=== PATIENT | female | born 1970 | race Caucasian/White ===

== ENCOUNTER → 2019-10-16 | Outpatient (CLI) | payer BC ==
--- NOTE | 2019-10-16 08:25 | US ---
EXAMINATION TYPE: US gallbladder DATE OF EXAM: 10/16/2019 COMPARISON: NONE CLINICAL HISTORY: R07.89 Chest pain, R10 Abd pain. Patient states she doesn't feel good after eating. Heart palpitations. EXAM MEASUREMENTS: Liver Length: 12.9 cm Gallbladder Wall: 0.2 cm CBD: 0.3 cm Right Kidney: 9.3 x 3.9 x 3.8 cm Pancreas: wnl Liver: wnl Gallbladder: wnl Evidence for sonographic Butts's sign: neg CBD: wnl Right Kidney: wnl IMPRESSION: Unremarkable ultrasound of the gallbladder. No sonographic evidence of cholelithiasis nor acute cholecystitis.
== END | disposition home or self-care (01) ==
LOC: RADUSWWP 07:34
PROVIDERS: ATTEND Family Medicine
DX: R10.9 Unspecified abdominal pain (principal); R07.89 Other chest pain; R00.2 Palpitations
CPT/HCPCS: 76705

== ENCOUNTER → 2020-04-23 | Outpatient (CLI) | payer BC ==
[2020-04-23 12:55] VITALS: BP 132/92; PULSE 111; RESP 18; TEMP 98.2
--- NOTE | 2020-04-23 13:25 | P.HPOB ---
History of Present Illness H&P Date: 04/23/20 Chief Complaint: The patient is here for her routine gynecologic exam and ma mmogram. This is a 50-year-old with an LMP of 2006. The patient has been amenorrheic since her endometrial ablation in 2006. She has occasional hot flashes at night but these are intermittent. She is otherwise without complaints. Review of Systems The patient has lost 7 pounds over the last 4 years. She denies respiratory, cardiac, or G.I. problems. Past Medical History Past Medical History: Hyperlipidemia Additional Past Medical History / Comment(s): Seasonal ALLERGIES. 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 History of Any Multi-Drug Resistant Organisms: None Reported Past Surgical History: Section, Hernia Repair, Uterine Ablation Additional Past Surgical History / Comment(s): Endometrial ablation in 2016. One previous section. Right flank hernia repair 1998. 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 - Past Family History Mother Family Medical History: Cancer, CVA/TIA, Myocardial Infarction ([place]) Additional Family Medical History / Comment(s): Leukemia. Father Family Medical History: Cancer, Congestive Heart Failure (CHF), Diabetes Mellitus, Renal Disease Additional Family Medical History / Comment(s): Prostate cancer, bladder cancer, and lung cancer. Medications and Allergies Home Medications Medication Instructions Recorded Confirmed Type Atorvastatin Calcium [Lipitor] 40 mg PO DAILY 04/23/20 04/23/20 History Diltiazem HCl [Cartia Xt] 240 mg PO DAILY 04/23/20 04/23/20 History Fexofenadine HCl [Sharmin Allergy] 180 mg PO DAILY 04/23/20 04/23/20 History Omeprazole [PriLOSEC] 20 mg PO AC-BRKFST 04/23/20 04/23/20 History Allergies Allergy/AdvReac Type Severity Reaction Status Date / Time Sulfa (Sulfonamide Allergy Unknown Unverified 04/23/20 12:50 Antibiotics) Exam Vital Signs Temp Pulse Resp BP Pulse Ox 04/23/20 12:52 98.2 F 111 H 18 132/92 98 Intake and Output 04/22/20 04/23/20 04/23/20 22:59 06:59 14:59 Other: Weight 53.524 kg Height 5 feet 5 inches, weight 118 pounds, BMI 19.6. This is a well-developed well-nourished white female who is alert and oriented times 3 in no acute distress. HEENT: Within normal limits. NECK: Supple without mass or thyromegaly. CHEST AND LUNGS: Clear to auscultation. HEART: Mild tachycardia. Regular rhythm. BREASTS: Are without mass or discharge. AXILLARY EXAM: Negative for adenopathy. BACK: Negative for CVA tenderness. ABDOMEN: Soft, nontender, without palpable masses. PELVIC EXAM: Normal external genitalia. Cervix and vagina appear normal. There is no unusual discharge. There is no evidence of prolapse. The uterus is midposition, nongravid size and nontender. There are no palpable adnexal masses or tenderness. RECTAL EXAM: negative for mass or tenderness and is negative for occult blood. EXTREMITIES: Nontender. IMPRESSION: 1. 50-year-old perimenopausal female with amenorrhea following endometrial ablation in 2006. 2. Normal gynecologic exam. 3. Mildly elevated blood pressure. PLAN: 1. Pap smear was performed. 2. Self breast awareness was discussed with the patient. 3. Screening mammogram will be done today. 4. We have discussed her elevated blood pressure. I have recommended that she check her blood pressure on a daily basis at home since she does have a blood pressure cuff. She is to follow up with her PCP for blood pressure elevations. She states she also has a natural resources engineer, Dr. Reardon. 5. Osteoporosis prevention was discussed. I have stressed the importance of adequate calcium, vitamin D and regular exercise. Recommended amounts of calcium and vitamin D were also discussed. 6. She was advised to return in one year for her annual well woman exam.
--- NOTE | 2020-04-25 10:40 | MM ---
Reason for exam: screening (asymptomatic). Last mammogram was performed 4 years ago. History: Family history of breast cancer in maternal aunt at age 40, breast cancer in paternal cousin at age 38, and breast cancer in maternal grandmother at age 50. Physical Findings: A clinical breast exam by your physician is recommended on an annual basis and results should be correlated with mammographic findings. MG 3D Screening Mammo W/Cad Bilateral CC and MLO view(s) were taken. Prior study comparison: April 21, 2016, bilateral MG screening mammo w CAD. March 13, 2014, bilateral MG screening mammo w CAD. The breast tissue is heterogeneously dense. This may lower the sensitivity of mammography. Asymmetric density inferior right MLO view is unchanged back to 2016. No significant changes when compared with prior studies. ASSESSMENT: Benign, BI-RAD 2 RECOMMENDATION: Routine screening mammogram of both breasts in 1 year.
--- NOTE | 2020-05-07 16:59 | P.PN ---
Progress Note - Text Progress Note Date: 05/07/20 OUTPATIENT FOLLOW-UP NOTE TEST(S)/RESULTS: test results from 04/23/2020 include negative Pap smear and benign mammogram. METHOD OF NOTIFICATION: the patient was notified by phone. PATIENT COMMENTS: the patient is happy to hear these results. DIAGNOSIS: negative Pap smear and benign mammogram. DISCUSSION: PLAN: the patient is to return in one year for her annual well woman exam.
== END | disposition home or self-care (01) ==
LOC: WWCWWP 12:29
PROVIDERS: ATTEND Obstetrics & Gynecology
DX: Z12.31 Encounter for screening mammogram for malignant neoplasm of breast (principal)
CPT/HCPCS: 77063; 77067

== ENCOUNTER 2020-05-22 10:04 | Day surgery (SDC) | payer BC ==
[2020-05-20 13:41] VITALS: BMI 19.6
[~2020-05-22 10:04] MED LIST: LACTATED RINGERS 1,000 ML IV SCH; LIDOCAINE 1% (10MG/ML) FOR IV START INTRADERMA PRN
[2020-05-22 10:32] VITALS: RESP 16; TEMP 98.2
[2020-05-22] MEDS ORDERED: PROPOFOL 10 MG/ML 20 ML VIAL IV ONE (11:29)
--- NOTE | 2020-05-22 11:40 | P.PCN ---
Date of Procedure: 05/22/20 Procedure(s) Performed: BRIEF HISTORY: Patient is a 50-year-old pleasant white female scheduled for an elective colonoscopy as a part of screening for colorectal neoplasia. PROCEDURE PERFORMED: Colonoscopy. PREOPERATIVE DIAGNOSIS: Screening for colon cancer. IV sedation per Anesthesia. PROCEDURE: After informed consent was obtained, the patient, was brought into the endoscopy unit. IV sedation was administered by Anesthesia under continuous monitoring. Digital rectal examination was normal. Initially the Olympus CF-160 flexible video colonoscope was then inserted in the rectum, gradually advanced into the cecum without any difficulty. Careful examination was performed as the scope was gradually being withdrawn. Ileocecal valve and the appendiceal orifice were visualized and appeared normal. Prep was excellent. Mucosa of the cecum, ascending colon, transverse colon, descending colon, sigmoid colon, and rectum appeared normal. Retroflexion was performed in the rectum and no lesions were seen. The patient tolerated the procedure well. IMPRESSION: Normal-appearing colon from rectum to cecum with no evidence of colorectal neoplasia. RECOMMENDATIONS: Findings of this examination were discussed with the patient as well as a family. She was advised to have a repeat screening colonoscopy in 10 years..
[2020-05-22 12:06] VITALS: BP 121/79; PULSE 86
== END 2020-05-22 12:40 | disposition home or self-care (01) ==
LOC: ORWHC2ENDO 10:04
PROVIDERS: ATTEND Internal Medicine Gastroenterology
DX: Z12.11 Encounter for screening for malignant neoplasm of colon (principal); E78.5 Hyperlipidemia, unspecified; K21.9 Gastro-esophageal reflux disease without esophagitis; Z79.899 Other long term (current) drug therapy; Z88.2 Allergy status to sulfonamides; Z90.89 Acquired absence of other organs; Z98.890 Other specified postprocedural states; Z98.891 History of uterine scar from previous surgery
CPT/HCPCS: 81025; J2704; G0121

== ENCOUNTER → 2020-08-06 | Outpatient (CLI) | payer BC ==
--- NOTE | 2020-08-06 11:50 | CT ---
EXAMINATION TYPE: CT soft tissue neck w con DATE OF EXAM: 08/06/2020 COMPARISON: Cervical spine 04/09/2011 HISTORY: Neck pain CT DLP: 244.20 mGycm CONTRAST: Patient injected with 100 ml mL of Isovue 300. TECHNIQUE: Axial images at 3 mm thick sections. Reconstructed images in the coronal plane and sagitt al plane are reviewed. FINDINGS: Limited CT sections are obtained the lung apices. There is thickening through the bilatera l lung apices. This was present in [address] neck: There is slight effacement of the left fossa of Rosenmuller compared to the right. Direct vi sualization is recommended. Underlying mass however is not clearly evident. Senior Storage Engineer spaces are nor mal. Paranasal sinuses and mastoid air cells are clear. Parotid glands appear normal and symmetrical. Submandibular glands, are normal. Parapharyngeal spac es are normal. No suspicious adenopathy is evident. The hypopharynx appears within normal limits. Vocal cord level appear symmetrical. Thyroid as visualized is normal. Osseous structures are normal. IMPRESSIONS: 1. Some effacement of the left fossa of Rosenmuller compared to the right. Direct visualization is re commended. 2. Suspicious abnormality to account for neck pain is not identified.
== END | disposition home or self-care (01) ==
LOC: RADCTMAIN 08:40
PROVIDERS: ATTEND Otolaryngology
DX: M54.2 Cervicalgia (principal); Z88.2 Allergy status to sulfonamides
CPT/HCPCS: 70491; Q9967

== ENCOUNTER 2021-07-03 10:02 | Day surgery (SDC) | payer BC ==
[2021-07-02 11:02] VITALS: BMI 20.7
[2021-07-03 10:31] VITALS: TEMP 97.8
[2021-07-03] MEDS ORDERED: LACTATED RINGERS 1,000 ML IV ONE (10:36)
[2021-07-03] MEDS ORDERED: LIDOCAINE 1% INJ 10MG/ML (20 ML MDV) ONE (11:26)
[2021-07-03] MEDS ORDERED: PROPOFOL 10 MG/ML 20 ML VIAL IV ONE (11:26)
--- NOTE | 2021-07-03 11:41 | P.PCN ---
Date of Procedure: 07/03/21 Procedure(s) Performed: BRIEF HISTORY: Patient is a 51-year-old, pleasant, white female scheduled for an upper endoscopy as a part of evaluation of epigastric pain, nausea, heartburn for the last 1 year duration. Presently on Prilosec 20 mg daily and the heartburn is resolved. Continues to have persistent epigastric pain. PROCEDURE PERFORMED: Esophagogastroduodenoscopy with biopsy. PREOPERATIVE DIAGNOSIS: Epigastric pain/nausea/. IV sedation per anesthesia. PROCEDURE: After informed consent was obtained, the patient was brought into the endoscopy unit. IV sedation was administered by Anesthesia under continuous monitoring. Initially the Olympus GIF-140 video endoscope was inserted into the mouth. Esophagus intubated without any difficulty. It was gradually advanced into the stomach and duodenum and carefully examined. The bulb and the second part of the duodenum appeared normal. Biopsies were done from the duodenum to rule out celiac disease The scope at this time was withdrawn to the stomach, adequately insufflated with air, and upon careful examination, mucosa of the antrum, mild gastritis and biopsies were done from this area. The body, cardia and the fundus appeared normal. The scope was then withdrawn into the esophagus. The GE junction was located at 39 cm from the incisors. The esophagus appeared normal. There were no erosions or ulcerations seen , biopsies were done from the esophagus and the patient tolerated the procedure well. IMPRESSION: 1. Mild antral gastritis. 2. Normal-appearing esophagus with no evidence of esophagitis or Crump's esophagus. RECOMMENDATIONS: The findings of this examination were discussed with the patient as well as a family. She was advised to follow with the biopsy result. She will continue with Prilosec 20 mg daily and follow antireflux measures..
[2021-07-03 11:57] VITALS: BP 124/80; PULSE 77; RESP 16
== END 2021-07-03 12:25 | disposition home or self-care (01) ==
LOC: ORWHC2ENDO 10:02
PROVIDERS: ATTEND Internal Medicine Gastroenterology
DX: K21.00 Gastro-esophageal reflux disease with esophagitis, without bleeding (principal); K29.70 Gastritis, unspecified, without bleeding; E78.5 Hyperlipidemia, unspecified; I49.9 Cardiac arrhythmia, unspecified; Z79.899 Other long term (current) drug therapy
CPT/HCPCS: 43239; 88305; J2001; J2704

== ENCOUNTER → 2021-08-05 | Outpatient (CLI) | payer BC ==
[2021-08-05 11:45] VITALS: BP 156/93; PULSE 95; RESP 16; TEMP 98.5
--- NOTE | 2021-08-05 12:32 | P.HPOB ---
History of Present Illness H&P Date: 08/05/21 Chief Complaint: The patient is here for her routine gynecologic exam and ma mmogram. This is a 51-year-old with an LMP of 2006. She is status post endometrial ablation in 2006 and has been amenorrheic since then. The patient is without gynecologic complaints. She denies any vaginal bleeding. Review of Systems She has gained 3 pounds over the past year. She denies respiratory or cardiac problems. GI: She has been feeling slightly queasy after eating and has been seeing Dr. Lynch for this. Past Medical History Past Medical History: GERD/Reflux, Hyperlipidemia Additional Past Medical History / Comment(s): Seasonal ALLERGIES. 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 History of Any Multi-Drug Resistant Organisms: None Reported Past Surgical History: Section, Hernia Repair, Tonsillectomy, Uterine Ablation Additional Past Surgical History / Comment(s): Endometrial ablation in 2016. One previous section. Right flank hernia repair 1998. COLONOSCOPY 2019. Upper endoscopy 2020. 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 - Past Family History Mother Family Medical History: Cancer, CVA/TIA, Myocardial Infarction ([place]), Pulmonary Embolus Additional Family Medical History / Comment(s): Leukemia, blood clot to lung. Father Family Medical History: Cancer, Congestive Heart Failure (CHF), Diabetes Mellitus, Renal Disease Additional Family Medical History / Comment(s): Prostate cancer, bladder cancer, and lung cancer. . Brother(s) Family Medical History: Myocardial Infarction ([place]) Medications and Allergies Home Medications Medication Instructions Recorded Confirmed Type Atorvastatin Calcium [Lipitor] 40 mg PO DAILY 04/23/20 08/05/21 History Diltiazem HCl [Cartia Xt] 240 mg PO DAILY 04/23/20 08/05/21 History Fexofenadine HCl [Sharmin Allergy] 180 mg PO DAILY 04/23/20 08/05/21 History Omeprazole [PriLOSEC] 20 mg PO AC-BRKFST 04/23/20 08/05/21 History Biotin 10,000 mcg PO DAILY 05/20/20 08/05/21 History Cholecalciferol [Vitamin D3 (25 2,000 unit PO DAILY 05/20/20 08/05/21 History Mcg = 1000 Iu)] Fiorellaacidoph,Novai, B.lactis 1 tab PO DAILY 05/20/20 08/05/21 History [Probiotic] Olopatadine HCl [Pataday] 1 drop BOTH EYES DAILY 05/20/20 08/05/21 History Cranberry Fruit Extract [Cranberry] 200 mg PO DAILY 08/05/21 08/05/21 History Allergies Allergy/AdvReac Type Severity Reaction Status Date / Time Sulfa (Sulfonamide Allergy Unknown Unverified 08/05/21 11:42 Antibiotics) Exam Vital Signs Temp Pulse Resp BP Pulse Ox 08/05/21 11:42 98.5 F 95 16 156/93 100 Intake and Output 08/04/21 08/05/21 08/05/21 22:59 06:59 14:59 Other: Weight 54.885 kg Height 5 feet 5 inches, weight 121 pounds, BMI 20.1. This is a well-developed well-nourished white female who is alert and oriented times 3 in no acute distress. HEENT: Within normal limits. NECK: Supple without mass or thyromegaly. CHEST AND LUNGS: Clear to auscultation. HEART: Regular rate and rhythm. BREASTS: Are without mass or discharge. AXILLARY EXAM: Negative for adenopathy. BACK: Negative for CVA tenderness. ABDOMEN: Soft, nontender, without palpable masses. PELVIC EXAM: Normal external genitalia with minimal atrophy. Cervix and vagina appear normal minimal atrophy. There is no unusual discharge. There is no evidence of prolapse. The uterus is midposition, nongravid size and nontender. There are no palpable adnexal masses or tenderness. RECTAL EXAM: Rectovaginal exam is negative for mass or tenderness and is negative for occult blood. EXTREMITIES: Nontender. IMPRESSION: 1. 51-year-old perimenopausal female with normal gynecologic exam. 2. Amenorrhea following endometrial ablation in 2006. 3. Elevated blood pressure. PLAN: 1. Pap smear was deferred since she had a normal one on 04/23/2020. 2. Self breast awareness was discussed with the patient. We have also discussed symptoms associated with inflammatory breast cancer. 3. Screening mammogram was done today. 4. We have discussed her blood pressure elevation. She will check her own blood pressure at home on a regular basis and follow up with her primary care physician regarding blood pressure elevation. 5. Osteoporosis prevention was discussed. I have stressed the importance of adequate calcium, vitamin D and regular exercise. Recommended amounts of calcium and vitamin D were also discussed. 6. She was advised to return in one year for her annual well woman exam.
--- NOTE | 2021-08-07 11:38 | MM ---
Reason for exam: screening (asymptomatic). Last mammogram was performed 1 year and 3 months ago. History: Patient is postmenopausal. Family history of breast cancer in maternal aunt at age 40, breast cancer in paternal cousin at age 38, and breast cancer in maternal grandmother at age 50. Physical Findings: A clinical breast exam by your physician is recommended on an annual basis and results should be correlated with mammographic findings. MG 3D Screening Mammo W/Cad Bilateral CC and MLO view(s) were taken. Prior study comparison: April 23, 2020, bilateral MG 3d screening mammo w/cad. April 21, 2016, bilateral MG screening mammo w CAD. There are scattered fibroglandular densities. No significant changes when compared with prior studies. ASSESSMENT: Benign, BI-RAD 2 RECOMMENDATION: Routine screening mammogram of both breasts in 1 year.
== END ==
LOC: WWCWWP 10:53
PROVIDERS: ATTEND Obstetrics & Gynecology
DX: Z01.419 Encounter for gynecological examination (general) (routine) without abnormal findings (principal); Z12.31 Encounter for screening mammogram for malignant neoplasm of breast; N91.2 Amenorrhea, unspecified; R03.0 Elevated blood-pressure reading, without diagnosis of hypertension; K21.9 Gastro-esophageal reflux disease without esophagitis; E78.5 Hyperlipidemia, unspecified; Z88.2 Allergy status to sulfonamides; Z79.899 Other long term (current) drug therapy
CPT/HCPCS: 77063; 77067

== ENCOUNTER 2021-10-23 15:56 | Observation (INO) | payer BC ==
[2021-10-23] MEDS ORDERED: SODIUM CHLORIDE 0.9% 500 ML 500 ML IV STA (16:29)
[2021-10-23] MEDS ORDERED: KETOROLAC 30 MG/ML 1 ML VIAL IVP STA (16:29)
[2021-10-23] MEDS ORDERED: LORazepam 2 MG/ML INJ IV STA (16:29)
--- NOTE | 2021-10-23 16:33 | ED ---
General Adult HPI - General Chief complaint: Chest Pain Stated complaint: Chest pains Time Seen by Provider: 10/23/21 16:00 Source: patient, family, RN notes reviewed, old records reviewed Mode of arrival: ambulatory - History of Present Illness Initial comments: This is a 51-year-old female presents emergency Department complaining of left- sided chest pain which radiates down her left arm. Patient states his been occurring for over a week. Patient states the pain is intermittent in nature and the duration is different every time. Patient states over the last 2 days been extremely significantly worse. Patient states she's also short of breath. Patient states she saw her primary medical care doctor and she was treated for urinary tract infection and given Lexapro for anxiety. Patient states she has no fever chills or cough per patient denies abdominal pain patient denies nausea vomiting diarrhea. Patient denies any headache patient denies numbness weakness. Patient states she just feels terrible overall. - Related Data Home Medications Medication Instructions Recorded Confirmed Atorvastatin Calcium [Lipitor] 40 mg PO DAILY 04/23/20 08/05/21 Diltiazem HCl [Cartia Xt] 240 mg PO DAILY 04/23/20 08/05/21 Fexofenadine HCl [Sharmin Allergy] 180 mg PO DAILY 04/23/20 08/05/21 Omeprazole [PriLOSEC] 20 mg PO AC-BRKFST 04/23/20 08/05/21 Biotin 10,000 mcg PO DAILY 05/20/20 08/05/21 Cholecalciferol [Vitamin D3 (25 2,000 unit PO DAILY 05/20/20 08/05/21 Mcg = 1000 Iu)] L.acidoph,Paracasei, B.lactis 1 tab PO DAILY 05/20/20 08/05/21 [Probiotic] Olopatadine HCl [Pataday] 1 drop BOTH EYES DAILY 05/20/20 08/05/21 Cranberry Fruit Extract [Cranberry] 200 mg PO DAILY 08/05/21 08/05/21 Allergies Allergy/AdvReac Type Severity Reaction Status Date / Time Sulfa (Sulfonamide Allergy Unknown Verified 10/23/21 16:05 Antibiotics) Review of Systems ROS Statement: Those systems with pertinent positive or pertinent negative responses have been documented in the HPI. ROS Other: All systems not noted in ROS Statement are negative. Past Medical History Past Medical History: GERD/Reflux, Hyperlipidemia Additional Past Medical History / Comment(s): Seasonal ALLERGIES. 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 History of Any Multi-Drug Resistant Organisms: None Reported Past Surgical History: Section, Hernia Repair, Tonsillectomy, Uterine Ablation Additional Past Surgical History / Comment(s): Endometrial ablation in 2017. One previous section. Right flank hernia repair 1998. COLONOSCOPY 2019. Upper endoscopy 2020. Past Anesthesia/Blood Transfusion Reactions: No Reported Reaction, Motion Sickness Past Psychological History: Anxiety Smoking Status: Never smoker Past Alcohol Use History: Occasional Past Drug Use History: None Reported - Past Family History Mother Family Medical History: Cancer, CVA/TIA, Myocardial Infarction ([place]), Pulmonary Embolus Additional Family Medical History / Comment(s): Leukemia, blood clot to lung. Father Family Medical History: Cancer, Congestive Heart Failure (CHF), Diabetes Mellitus, Renal Disease Additional Family Medical History / Comment(s): Prostate cancer, bladder cancer, and lung cancer. . Brother(s) Family Medical History: Myocardial Infarction ([place]) General Exam - General Exam Comments Initial Comments: GENERAL: Patient is well-developed and well-nourished. Patient is nontoxic and well- hydrated and is in mild distress. ENT: Neck is soft and supple. No significant lymphadenopathy is noted. Oropharynx is clear. Moist mucous membranes. Neck has full range of motion without eliciting any pain. EYES: The sclera were anicteric and conjunctiva were pink and moist. Extraocular movements were intact and pupils were equal round and reactive to light. Eyelids were unremarkable. PULMONARY: Unlabored respirations. Good breath sounds bilaterally. No audible rales rhonchi or wheezing was noted. CARDIOVASCULAR: There is a regular rate and rhythm without any murmurs gallops or rubs. Femoral pulses are equal bilaterally ABDOMEN: Soft and nontender with normal bowel sounds. SKIN: Skin is clear with no lesions or rashes and otherwise unremarkable. NEUROLOGIC: Patient is alert and oriented x3. Cranial nerves II through XII are grossly intact. Motor and sensory are also intact. Normal speech, volume and content. Symmetrical smile. MUSCULOSKELETAL: Normal extremities with adequate strength and full range of motion. 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 Patient's EKG shows no ST segment elevation or depression Chest x-ray shows no acute abnormality. Patient states she had some relief with the Ativan and Toradol. I spoke with Dr. Blanco he agreed to admit the patient admitted the patient I consult cardiology. - Lab Data Result diagrams: 10/23/21 16:40 10/23/21 16:40 Lab Results 10/23/21 10/23/21 10/23/21 Range/Units 16:40 16:40 16:40 WBC 8.1 (3.8-10.6) k/uL RBC 4.29 (3.80-5.40) m/uL Hgb 13.6 (11.4-16.0) gm/dL Hct 40.9 (34.0-46.0) % MCV 95.3 (80.0-100.0) fL MCH 31.6 (25.0-35.0) pg MCHC 33.2 (31.0-37.0) g/dL RDW 12.6 (11.5-15.5) % Plt Count 307 (150-450) k/uL MPV 7.3 Neutrophils % 69 % Lymphocytes % 24 % Monocytes % 4 % Eosinophils % 1 % Basophils % 1 % Neutrophils # 5.6 (1.3-7.7) k/uL Lymphocytes # 2.0 (1.0-4.8) k/uL Monocytes # 0.4 (0-1.0) k/uL Eosinophils # 0.1 (0-0.7) k/uL Basophils # 0.0 (0-0.2) k/uL PT 10.0 (9.0-12.0) sec INR 0.9 (<1.2) APTT 24.2 (22.0-30.0) sec D-Dimer 0.19 (<0.60) mg/L FEU Sodium 136 L (137-145) mmol/L Potassium 3.8 (3.5-5.1) mmol/L Chloride 102 (98-107) mmol/L Carbon Dioxide 24 (22-30) mmol/L Anion Gap 10 mmol/L BUN 16 (7-17) mg/dL Creatinine 0.72 (0.52-1.04) mg/dL Est GFR (CKD-EPI)AfAm >90 (>60 ml/min/1.73 sqM) Est GFR (CKD-EPI)NonAf >90 (>60 ml/min/1.73 sqM) Glucose 86 (74-99) mg/dL Plasma Lactic Acid Amandeep (0.7-2.0) mmol/L Calcium 10.0 (8.4-10.2) mg/dL Magnesium 1.7 (1.6-2.3) mg/dL Total Bilirubin 0.4 (0.2-1.3) mg/dL AST 30 (14-36) U/L ALT 25 (4-34) U/L Alkaline Phosphatase 136 H (38-126) U/L Total Protein 7.6 (6.3-8.2) g/dL Albumin 4.7 (3.5-5.0) g/dL Urine Color Urine Appearance (Clear) Urine pH (5.0-8.0) Ur Specific Callaway (1.001-1.035) Urine Protein (Negative) Urine Glucose (UA) (Negative) Urine Ketones (Negative) Urine Blood (Negative) Urine Nitrite (Negative) Urine Bilirubin (Negative) Urine Urobilinogen (<2.0) mg/dL Ur Leukocyte Esterase (Negative) Urine RBC (0-5) /hpf Urine WBC (0-5) /hpf Ur Squamous Epith Cells (0-4) /hpf Urine Bacteria (None) /hpf Urine Mucus (None) /hpf Coronavirus (PCR) (Not Detectd) 10/23/21 10/23/21 10/23/21 Range/Units 16:40 16:52 16:52 WBC (3.8-10.6) k/uL RBC (3.80-5.40) m/uL Hgb (11.4-16.0) gm/dL Hct (34.0-46.0) % MCV (80.0-100.0) fL MCH (25.0-35.0) pg MCHC (31.0-37.0) g/dL RDW (11.5-15.5) % Plt Count (150-450) k/uL MPV Neutrophils % % Lymphocytes % % Monocytes % % Eosinophils % % Basophils % % Neutrophils # (1.3-7.7) k/uL Lymphocytes # (1.0-4.8) k/uL Monocytes # (0-1.0) k/uL Eosinophils # (0-0.7) k/uL Basophils # (0-0.2) k/uL PT (9.0-12.0) sec INR (<1.2) APTT (22.0-30.0) sec D-Dimer (<0.60) mg/L FEU Sodium (137-145) mmol/L Potassium (3.5-5.1) mmol/L Chloride (98-107) mmol/L Carbon Dioxide (22-30) mmol/L Anion Gap mmol/L BUN (7-17) mg/dL Creatinine (0.52-1.04) mg/dL Est GFR (CKD-EPI)AfAm (>60 ml/min/1.73 sqM) Est GFR (CKD-EPI)NonAf (>60 ml/min/1.73 sqM) Glucose (74-99) mg/dL Plasma Lactic Acid Amandeep 0.8 (0.7-2.0) mmol/L Calcium (8.4-10.2) mg/dL Magnesium (1.6-2.3) mg/dL Total Bilirubin (0.2-1.3) mg/dL AST (14-36) U/L ALT (4-34) U/L Alkaline Phosphatase (38-126) U/L Total Protein (6.3-8.2) g/dL Albumin (3.5-5.0) g/dL Urine Color Light Yellow Urine Appearance Clear (Clear) Urine pH 5.5 (5.0-8.0) Ur Specific [place]away 1.010 (1.001-1.035) Urine Protein Negative (Negative) Urine Glucose (UA) Negative (Negative) Urine Ketones Trace H (Negative) Urine Blood Trace H (Negative) Urine Nitrite Negative (Negative) Urine Bilirubin Negative (Negative) Urine Urobilinogen <2.0 (<2.0) mg/dL Ur Leukocyte Esterase Negative (Negative) Urine RBC <1 (0-5) /hpf Urine WBC 1 (0-5) /hpf Ur Squamous Epith Cells 3 (0-4) /hpf Urine Bacteria Rare H (None) /hpf Urine Mucus Rare H (None) /hpf Coronavirus (PCR) Not Detected (Not Detectd) Disposition Clinical Impression: Chest pain Disposition: ADMITTED IP TO THIS HOSP Referrals: Randa Diggs MD [Primary Care Provider] - 1-2 days Time of Disposition: 17:56
[2021-10-23 16:58] LABS: Basophils % (A) 1 %; Eosinophils # (A) 0.1 k/uL (0-0.7); Eosinophils % (A) 1 %; HCT 40.9 % (34.0-46.0); HGB 13.6 gm/dL (11.4-16.0); Lymphocytes % (A) 24 %; MCH 31.6 pg (25.0-35.0); MCHC 33.2 g/dL (31.0-37.0); MCV 95.3 fL (80.0-100.0); Mean Platelet Volume 7.3; Monocytes # (A) 0.4 k/uL (0-1.0); Monocytes % (A) 4 %; Neutrophils # (A) 5.6 k/uL (1.3-7.7); Neutrophils % (A) 69 %; Platelet Count 307 k/uL (150-450); RBC 4.29 m/uL (3.80-5.40); RDW 12.6 % (11.5-15.5); WBC 8.1 k/uL (3.8-10.6)
[2021-10-23 17:07] LABS: Appearance,Urine Clear (Clear); Bacteria,Urine Rare /hpf; Bilirubin,Urine Negative (Negative); Blood,Urine Trace (Negative); Color,Urine Light Yellow; Glucose,Urine (UA) Negative (Negative); Ketones,Urine Trace (Negative); Leukocyte Esterase,Urine Negative (Negative); Mucus,Urine Rare /hpf; Nitrite,Urine Negative (Negative); PH, Urine 5.5 (5.0-8.0); Protein,Urine Negative (Negative); RBC,Urine <1 /hpf (0-5); Squamous Epithelial Cell,Urine 3 /hpf (0-4); Urobilinogen,Urine <2.0 mg/dL (<2.0); WBC,Urine 1 /hpf (0-5)
[2021-10-23 17:12] LABS: INR 0.9 (<1.2); Partial Thromboplastin Time 24.2 sec (22.0-30.0)
[2021-10-23 17:25] LABS: Chloride 102 mmol/L (98-107)
[2021-10-23 17:27] LABS: ALT 25 U/L (4-34); AST 30 U/L (14-36); African American GFR (CKD) >90 (>60 ml/min/1.73 sqM); Albumin 4.7 g/dL (3.5-5.0); Alkaline Phosphatase 136 U/L (38-126); Anion Gap 10 mmol/L; Blood Urea Nitrogen 16 mg/dL (7-17); Carbon Dioxide 24 mmol/L (22-30); Glucose 86 mg/dL (74-99); Magnesium 1.7 mg/dL (1.6-2.3); Non-African American GFR(CKD) >90 (>60 ml/min/1.73 sqM); Potassium 3.8 mmol/L (3.5-5.1); Sodium 136 mmol/L (137-145); Total Bilirubin 0.4 mg/dL (0.2-1.3); Total Protein 7.6 g/dL (6.3-8.2)
--- NOTE | 2021-10-23 17:45 | XR ---
EXAMINATION: XR chest 2V DATE AND TIME: 10/23/2021 5:27 PM CLINICAL INDICATION: 51 yo with chest pain and difficulty breathing TECHNIQUE: PA and lateral chest radiographs COMPARISON: 08/01/2012 FINDINGS: The lungs are negative for acute findings. The pleural spaces are negative. The cardiac silhouette is not enlarged. The remainder of the mediastinal silhouette is unremarkable. The skeletal structures and soft tissues are negative for acute findings. IMPRESSION: No acute radiographic process.
[2021-10-23] MEDS ORDERED: NITROGLYCERIN SL TABS 0.4 MG TAB SUBLINGUAL PRN (17:57)
[2021-10-23] MEDS: NITROGLYCERIN OINT 1 INCH/GM PACKET TOPICAL SCH (18:42)
[2021-10-23] MEDS: AMOXICILLIN 875 MG TAB PO SCH (20:39)
[2021-10-24] MEDS: ACETAMINOPHEN TAB 325 MG TAB PO PRN ×2 (00:02→08:37)
[2021-10-24] MEDS: NITROGLYCERIN OINT 1 INCH/GM PACKET TOPICAL SCH ×2 (01:35→03:55)
[2021-10-24 05:22] VITALS: PULSE 83; RESP 16
[2021-10-24] MEDS: AMOXICILLIN 875 MG TAB PO SCH (08:34)
[2021-10-24 08:38] VITALS: BP 108/65; TEMP 98.3
[2021-10-24] MEDS ORDERED: ASPIRIN 81 MG PO SCH (09:00)
[2021-10-24] MEDS ORDERED: ASPIRIN 325 MG TAB PO SCH (09:00)
[2021-10-24] MEDS ORDERED: ESCITALOPRAM 5 MG TAB PO SCH (09:15)
--- NOTE | 2021-10-24 09:54 | P.CRDCN ---
History of Present Illness Consult date: 10/24/21 History of present illness: HISTORY OF PRESENT ILLNESS: This is a 51-year-old female with a past medical history significant for hypertension hyperlipidemia, and family history of coronary artery disease. Patient follows in the office with Dr. Reardon. We have been asked to see the patient in consultation for chest pain. Patient examined at the bedside. Patient states she has been having some chest discomfort since last . She states the pain as a pressure-like sensation in the middle of her chest and the pain radiates down her arm and into her jaw. She states that pain has been intermittent since last so she finally decided to come to the emergency room further evaluation. She currently denies chest pain or pressure. EKG reveals sinus mechanism with no signs of acute ischemia Chest xray negative for acute process Laboratory data: WBC 8.1. Hemoglobin 13.6. Platelet count 307. D-dimer 0.19. Sodium 136. Potassium 3.8. BUN 16. Creatinine 0.72. Troponin negative 3. Current home cardiac medications include diltiazem 240 mg daily and Lipitor 40 mg daily Most recent echocardiogram obtained in 2017 revealed normal ejection fraction Patient underwent stress test in 2017 which was negative for ischemia REVIEW OF SYSTEMS: At the time of my exam: CONSTITUTIONAL: Denies fever or chills. HEENT: Denies blurred vision, vision changes, or eye pain. Denies hemoptysis CARDIOVASCULAR: Denies chest pain. Denies orthopnea. Denies PND. Denies palpitations RESPIRATORY: Denies shortness of breath. GASTROINTESTINAL: Denies abdominal pain. Denies nausea or vomiting. HEMATOLOGIC: Denies bleeding disorders. GENITOURINARY: Denies any blood in urine. SKIN: Denies pruitis. Denies rash. PHYSICAL EXAM: VITAL SIGNS: Reviewed. GENERAL: Well-developed in no acute distress. HEENT: Head is normocephalic. Pupils are equal, round. Sclerae anicteric. Mucous membranes of the mouth are moist. Neck supple. No JVD or thyromegaly LUNGS: Respirations even and unlabored. Lungs essentially clear to auscultation bilaterally. HEART: Regular rate and rhythm. S1 and S2 heard. ABDOMEN: Soft. Nondistended. Nontender. EXTREMITIES: Normal range of motion. No clubbing or cyanosis. Peripheral pulses intact. No lower extremity edema NEUROLOGIC: Awake and alert. Oriented x 3. ASSESSMENT: Chest pain Hypertension Hyperlipidemia Family history of coronary artery disease PLAN: An acute coronary event has been ruled out Obtain 2-D echo to assess cardiac structure and function Resume home cardiac medications Further recommendations pending patient course Nurse practitioner note has been reviewed by physician. Signing provider agrees with the documented findings, assessment, and plan of care. Past Medical History Past Medical History: GERD/Reflux, Hyperlipidemia Additional Past Medical History / Comment(s): Seasonal ALLERGIES. 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 History of Any Multi-Drug Resistant Organisms: None Reported Past Surgical History: Section, Hernia Repair, Tonsillectomy, Uterine Ablation Additional Past Surgical History / Comment(s): Endometrial ablation in 2017. One previous section. Right flank hernia repair 1998. COLONOSCOPY 2019. Upper endoscopy 2020. Past Anesthesia/Blood Transfusion Reactions: No Reported Reaction, Motion Sickness Past Psychological History: Anxiety Smoking Status: Never smoker Past Alcohol Use History: Occasional Past Drug Use History: None Reported - Past Family History Mother Family Medical History: Cancer, CVA/TIA, Myocardial Infarction ([place]), Pulmonary Embolus Additional Family Medical History / Comment(s): Leukemia, blood clot to lung. Father Family Medical History: Cancer, Congestive Heart Failure (CHF), Diabetes Mellitus, Renal Disease Additional Family Medical History / Comment(s): Prostate cancer, bladder cancer, and lung cancer. . Brother(s) Family Medical History: Myocardial Infarction ([place]) Medications and Allergies Home Medications Medication Instructions Recorded Confirmed Type Atorvastatin Calcium [Lipitor] 40 mg PO DAILY 04/23/20 10/23/21 History Diltiazem HCl [Cartia Xt] 240 mg PO DAILY 04/23/20 10/23/21 History Omeprazole [PriLOSEC] 20 mg PO AC-BRKFST 04/23/20 10/23/21 History Biotin 10,000 mcg PO DAILY 05/20/20 10/23/21 History Cholecalciferol [Vitamin D3 (25 2,000 unit PO DAILY 05/20/20 10/23/21 History Mcg = 1000 Iu)] Amoxicillin 875 mg PO Q12HR 10/23/21 10/23/21 History Escitalopram [Lexapro] 5 mg PO DAILY 10/23/21 10/23/21 History Allergies Allergy/AdvReac Type Severity Reaction Status Date / Time Sulfa (Sulfonamide Allergy Unknown Verified 10/23/21 18:08 Antibiotics) Physical Exam Vitals: Vital Signs Temp Pulse Pulse Pulse Resp BP BP 10/24/21 07:00 98.3 F 83 16 108/65 10/24/21 05:21 97.9 F 83 16 103/53 10/23/21 22:07 97.9 F 88 16 116/72 10/23/21 20:00 98.3 F 98 18 119/75 10/23/21 18:37 92 18 148/97 10/23/21 17:30 100 18 151/91 10/23/21 16:52 77 72 18 161/93 10/23/21 16:01 98.2 F 97 18 156/89 Pulse Ox 10/24/21 07:00 96 10/24/21 05:21 96 10/23/21 22:07 96 10/23/21 20:00 96 10/23/21 18:37 96 10/23/21 17:30 96 10/23/21 16:52 100 10/23/21 16:01 99 Intake and Output 10/23/21 10/24/21 10/24/21 22:59 06:59 14:59 Output Total 1 Balance -1 Output: Urine 1 Other: # Voids 3 Weight 54.431 kg Results 10/23/21 16:40 10/23/21 16:40 Cardiac Enzymes 10/23/21 10/23/21 10/23/21 Range/Units 16:40 16:40 20:00 AST 30 (14-36) U/L Troponin I <0.012 <0.012 (0.000-0.034) ng/mL 10/23/21 Range/Units 22:16 AST (14-36) U/L Troponin I <0.012 (0.000-0.034) ng/mL Coagulation 10/23/21 Range/Units 16:40 PT 10.0 (9.0-12.0) sec APTT 24.2 (22.0-30.0) sec CBC 10/23/21 Range/Units 16:40 WBC 8.1 (3.8-10.6) k/uL RBC 4.29 (3.80-5.40) m/uL Hgb 13.6 (11.4-16.0) gm/dL Hct 40.9 (34.0-46.0) % Plt Count 307 (150-450) k/uL Comprehensive Metabolic Panel 10/23/21 Range/Units 16:40 Sodium 136 L (137-145) mmol/L Potassium 3.8 (3.5-5.1) mmol/L Chloride 102 (98-107) mmol/L Carbon Dioxide 24 (22-30) mmol/L BUN 16 (7-17) mg/dL Creatinine 0.72 (0.52-1.04) mg/dL Glucose 86 (74-99) mg/dL Calcium 10.0 (8.4-10.2) mg/dL AST 30 (14-36) U/L ALT 25 (4-34) U/L Alkaline Phosphatase 136 H (38-126) U/L Total Protein 7.6 (6.3-8.2) g/dL Albumin 4.7 (3.5-5.0) g/dL Current Medications Generic Name Dose Route Start Last Admin Trade Name Freq PRN Reason Stop Dose Admin Acetaminophen 650 mg 10/23/21 22:18 10/24/21 08:37 Acetaminophen Tab 325 Mg Tab PO 650 mg Q6HR PRN Administration Fever and/ or Pain Amoxicillin 875 mg 10/23/21 21:00 10/24/21 08:34 Amoxicillin 875 Mg Tab PO 875 mg Q12HR ROCIO Administration Aspirin 81 mg 10/24/21 09:00 10/24/21 08:34 Aspirin 81 Mg PO 81 mg DAILY ROCIO Administration Atorvastatin Calcium 40 mg 10/25/21 09:00 Atorvastatin 40 Mg Tab PO DAILY ROCIO Cholecalciferol 50 mcg 10/25/21 09:00 Cholecalciferol 25 Mcg (1000 Iu) Tablet PO DAILY ORCIO Diltiazem HCl 240 mg 10/25/21 09:00 Diltiazem Cd 240 Mg Cap.Er.24h PO DAILY ROCIO Escitalopram Oxalate 5 mg 10/24/21 09:15 10/24/21 09:24 Escitalopram 5 Mg Tab PO 5 mg DAILY ROCIO Administration Nitroglycerin 0.4 mg 10/23/21 17:57 Nitroglycerin Sl Tabs 0.4 Mg Tab SUBLINGUAL Q5M PRN Chest Pain Pantoprazole Sodium 40 mg 10/25/21 07:30 Pantoprazole 40 Mg Tablet PO AC-BRKFST ROCIO Intake and Output 10/23/21 10/24/21 10/24/21 22:59 06:59 14:59 Output Total 1 Balance -1 Output: Urine 1 Other: # Voids 3 Weight 54.431 kg 10/23/21 16:40 10/23/21 16:40
[2021-10-24 10:23] LABS: Chol/HDL Ratio 2.59 Ratio; LDL Cholesterol,Calculated 81.7 mg/dL (0.0-131.0)
--- NOTE | 2021-10-24 10:25 | P.HPIM ---
History of Present Illness H&P Date: 10/24/21 Chief Complaint: Chest pain This is a 51-year-old female patient of Dr. Diggs who presented to ER with complaints of intermittent chest pain has been occurring over the past 2 days. Patient reports that the pain is a pressure sensation chest that radiates down her arm into back and jaw. Patient also states she has associated shortness of breath. Patient does follow regularly with Dr. Reardon. Patient does have past medical history of hypertension, hyperlipidemia and GERD and anxiety. Patient also currently treating getting treated for urinary tract infection with amoxicillin. Chest x-ray completed showing negative for acute process. EKG reveals sinus mechanism with no signs of acute ischemia. D-dimer 0.19. COVID- 19 negative. Troponins negative 3. Cardiology services have been consulted. 2-D echo and stress test have been ordered per cardiology services. At this time patient denies chest pain or shortness of breath. Patient denies nausea vomiting or diarrhea. Patient denies any urinary burning or frequency. Patient does complain that she just overall does not feel well. Review of Systems Please refer to HPI otherwise unremarkable Past Medical History Past Medical History: GERD/Reflux, Hyperlipidemia Additional Past Medical History / Comment(s): Seasonal ALLERGIES. 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 History of Any Multi-Drug Resistant Organisms: None Reported Past Surgical History: Section, Hernia Repair, Tonsillectomy, Uterine Ablation Additional Past Surgical History / Comment(s): Endometrial ablation in 2017. One previous section. Right flank hernia repair 1998. COLONOSCOPY 2019. Upper endoscopy 2020. Past Anesthesia/Blood Transfusion Reactions: No Reported Reaction, Motion Sickness Past Psychological History: Anxiety Smoking Status: Never smoker Past Alcohol Use History: Occasional Past Drug Use History: None Reported - Past Family History Mother Family Medical History: Cancer, CVA/TIA, Myocardial Infarction ([place]), Pulmonary Embolus Additional Family Medical History / Comment(s): Leukemia, blood clot to lung. Father Family Medical History: Cancer, Congestive Heart Failure (CHF), Diabetes Mellitus, Renal Disease Additional Family Medical History / Comment(s): Prostate cancer, bladder cancer, and lung cancer. . Brother(s) Family Medical History: Myocardial Infarction ([place]) Medications and Allergies Home Medications Medication Instructions Recorded Confirmed Type Atorvastatin Calcium [Lipitor] 40 mg PO DAILY 04/23/20 10/23/21 History Diltiazem HCl [Cartia Xt] 240 mg PO DAILY 04/23/20 10/23/21 History Omeprazole [PriLOSEC] 20 mg PO AC-BRKFST 04/23/20 10/23/21 History Biotin 10,000 mcg PO DAILY 05/20/20 10/23/21 History Cholecalciferol [Vitamin D3 (25 2,000 unit PO DAILY 05/20/20 10/23/21 History Mcg = 1000 Iu)] Amoxicillin 875 mg PO Q12HR 10/23/21 10/23/21 History Escitalopram [Lexapro] 5 mg PO DAILY 10/23/21 10/23/21 History Allergies Allergy/AdvReac Type Severity Reaction Status Date / Time Sulfa (Sulfonamide Allergy Unknown Verified 10/23/21 18:08 Antibiotics) Physical Exam Vitals: Vital Signs Temp Pulse Pulse Pulse Resp BP BP 10/24/21 07:00 98.3 F 83 16 108/65 10/24/21 05:21 97.9 F 83 16 103/53 10/23/21 22:07 97.9 F 88 16 116/72 10/23/21 20:00 98.3 F 98 18 119/75 10/23/21 18:37 92 18 148/97 10/23/21 17:30 100 18 151/91 10/23/21 16:52 77 72 18 161/93 10/23/21 16:01 98.2 F 97 18 156/89 Pulse Ox 10/24/21 07:00 96 10/24/21 05:21 96 10/23/21 22:07 96 10/23/21 20:00 96 10/23/21 18:37 96 10/23/21 17:30 96 10/23/21 16:52 100 10/23/21 16:01 99 Intake and Output 10/23/21 10/24/21 10/24/21 22:59 06:59 14:59 Output Total 1 Balance -1 Output: Urine 1 Other: # Voids 3 Weight 54.431 kg Head normocephalic Neck supple Lungs clear to auscultation bilaterally no wheezing or crackles Heart regular rate and rhythm S1-S2, no rub or gallop Abdomen is soft nontender nondistended positive bowel sounds no hepatosplenomegaly Extremities no edema Neuro alert and orientated to 3 Results CBC & Chem 7: 10/23/21 16:40 10/23/21 16:40 Labs: Abnormal Lab Results - Last 24 Hours (Table) 10/23/21 10/23/21 Range/Units 16:40 16:52 Sodium 136 L (137-145) mmol/L Alkaline Phosphatase 136 H (38-126) U/L Urine Ketones Trace H (Negative) Urine Blood Trace H (Negative) Urine Bacteria Rare H (None) /hpf Urine Mucus Rare H (None) /hpf Thrombosis Risk Factor Assmnt - Choose All That Apply Any of the Below Risk Factors Present?: Yes Each Factor Represents 1 point: Age 41-60 years Other Risk Factors: No Other congenital or acquired thrombophilia - If yes, enter type in comment: No Thrombosis Risk Factor Assessment Total Risk Factor Score: 1 Thrombosis Risk Factor Assessment Level: Low Risk Assessment and Plan Assessment: 1. Chest pain. Cardiology services are following. Troponins negative 3. D- dimer negative. Stress test and 2-D echo ordered 2. Essential hypertension 3. Hyperlipidemia. Maintained on statin 4. History of GERD 5. History of anxiety Time with Patient: Greater than 30 (Greater than 60% of the total time spent in counseling and coordination of care)
--- NOTE | 2021-10-24 13:34 | ECHOS ---
STRESS ECHOCARDIOGRAM INDICATIONS: Chest pain. BASELINE HEART RATE: 97 BASELINE BLOOD PRESSURE: 137/67 MAXIMUM HEART RATE: 165 MAXIMUM BLOOD PRESSURE: 160/76 85% MPHR: 142 100% MPHR: 167 METS: 7.3 MAXIMUM STAGE REACHED: 2 TOTAL EXERCISE TIME: 6:01 CLINICAL INFORMATION: Baseline EKG shows sinus rhythm, normal axis, normal intervals. Patient exercised on Maxwell protocol for a total of 6 minutes, achieving 7 METS, 85% of predicted maximal heart rate, and complained of shortness of breath without significant ST-segment depression. Baseline echo shows normal left ventricular size, wall motion and systolic function. Post exercise there is normal hyperdynamic response of all segments of myocardium noted. CONCLUSIONS: 1. Average exercise tolerance. 2. Negative stress test by EKG criteria. 3. Negative stress echo. MMODL / IJN: [id number] /
--- NOTE | 2021-10-24 13:36 | P.DS ---
Providers Date of admission: 10/23/21 17:57 Expected date of discharge: 10/24/21 Attending physician: Opal Blanco Primary care physician: Randa Diggs Hospital Course: Diagnoses on discharge: 1. Chest pain. Cardiology services are following. Troponins negative 3. D- dimer negative. Stress test negative per cardiology, patient was cleared for discharge. 2. Essential hypertension 3. Hyperlipidemia. Maintained on statin 4. History of GERD 5. History of anxiety Hospital Course: This is a 51-year-old female patient of Dr. Diggs who presented to ER with complaints of intermittent chest pain has been occurring over the past 2 days. Patient reports that the pain is a pressure sensation chest that radiates down her arm into back and jaw. Patient also states she has associated shortness of breath. Patient does follow regularly with Dr. Reardon. Patient does have past medical history of hypertension, hyperlipidemia and GERD and anxiety. Patient a lso currently treating getting treated for urinary tract infection with amoxicillin. Chest x-ray completed showing negative for acute process. EKG reveals sinus mechanism with no signs of acute ischemia. D-dimer 0.19. COVID- 19 negative. Troponins negative 3. Cardiology services have been consulted. 2-D echo and stress test have been ordered per cardiology services. At this time patient denies chest pain or shortness of breath. Patient denies nausea vomiting or diarrhea. Patient denies any urinary burning or frequency. Patient does complain that she just overall does not feel well. On 1Patient was seen and examined on the medical floor, he is alert and oriented x 3 in no distress, he denies any complaints there is no fever or chills no headache or dizziness no chest pain no shortness of breath no palpitation no cough no nausea or vomiting no abdominal pain no diarrhea no blood in the stools no burning with urination no frequency or urgency and no hematuria, there is no weakness or numbness in any of the extremities no change in vision speech or gait. Patient was evaluated by cardiology stress test was negative she was cleared for discharge she will be discharged home today follow- up with primary care physician Dr. Diggs within 1 week. Plan - Discharge Summary Discharge Rx Participant: Yes New Discharge Prescriptions: New Aspirin 81 mg PO DAILY tab Continue Omeprazole [PriLOSEC] 20 mg PO AC-BRKFST Diltiazem HCl [Cartia Xt] 240 mg PO DAILY Atorvastatin Calcium [Lipitor] 40 mg PO DAILY Cholecalciferol [Vitamin D3 (25 Mcg = 1000 Iu)] 2,000 unit PO DAILY Biotin 10,000 mcg PO DAILY Amoxicillin 875 mg PO Q12HR Escitalopram [Lexapro] 5 mg PO DAILY Discharge Medication List Atorvastatin Calcium [Lipitor] 40 mg PO DAILY 04/23/20 [History] Diltiazem HCl [Cartia Xt] 240 mg PO DAILY 04/23/20 [History] Omeprazole [PriLOSEC] 20 mg PO AC-BRKFST 04/23/20 [History] Biotin 10,000 mcg PO DAILY 05/20/20 [History] Cholecalciferol [Vitamin D3 (25 Mcg = 1000 Iu)] 2,000 unit PO DAILY 05/20/20 [History] Amoxicillin 875 mg PO Q12HR 10/23/21 [History] Escitalopram [Lexapro] 5 mg PO DAILY 10/23/21 [History] Aspirin 81 mg PO DAILY tab 10/24/21 [Rx] Follow up Appointment(s)/Referral(s): Randa Diggs MD [Primary Care Provider] - 1-2 days
[2021-10-25] MEDS ORDERED: PANTOPRAZOLE 40 MG TABLET PO SCH (07:30)
[2021-10-25] MEDS ORDERED: DILTIAZEM CD 240 MG CAP.ER.24H PO SCH (09:00)
[2021-10-25] MEDS ORDERED: ATORVASTATIN 40 MG TAB PO SCH (09:00)
[2021-10-25] MEDS ORDERED: CHOLECALCIFEROL 25 MCG (1000 IU) TABLET PO SCH (09:00)
== END 2021-10-24 15:21 | disposition home or self-care (01) ==
LOC: EC 15:56 → 6NMEDSUR 17:57
PROVIDERS: ADMIT Internal Medicine; ATTEND Internal Medicine
DX: R07.89 Other chest pain (principal); N39.0 Urinary tract infection, site not specified; R06.02 Shortness of breath; I10 Essential (primary) hypertension; E78.5 Hyperlipidemia, unspecified; K21.9 Gastro-esophageal reflux disease without esophagitis; J30.2 Other seasonal allergic rhinitis; F41.9 Anxiety disorder, unspecified; Z20.822 Contact with and (suspected) exposure to COVID-19; Z79.899 Other long term (current) drug therapy; Z88.2 Allergy status to sulfonamides; Z98.891 History of uterine scar from previous surgery; Z87.42 Personal history of other diseases of the female genital tract; Z98.890 Other specified postprocedural states; Z82.3 Family history of stroke; Z82.49 Family history of ischemic heart disease and other diseases of the circulatory system; Z80.6 Family history of leukemia; Z83.3 Family history of diabetes mellitus; Z80.52 Family history of malignant neoplasm of bladder; Z80.1 Family history of malignant neoplasm of trachea, bronchus and lung; Z84.1 Family history of disorders of kidney and ureter
CPT/HCPCS: 96361; 96374; 96375; 99285; 36415; 93005; 93306; 93351; 85379; 80061; 80053; 83605; 83735; 84484; 85025; 85610; 85730; 81001; 87635; 71046; G0378 ×2; J2060; J1885

== ENCOUNTER → 2022-11-17 | Outpatient (CLI) | payer BC ==
[2022-11-17 16:06] VITALS: BP 143/88; PULSE 98; RESP 17; TEMP 99
--- NOTE | 2022-11-17 17:10 | P.HPOB ---
History of Present Illness H&P Date: 11/17/22 Chief Complaint: The patient is here for her routine gynecologic exam and ma mmogram. This is a 52-year-old with an LMP of 2006. The patient is status post endometrial ablation in 2006 and has been amenorrheic since then. She has been experiencing mild vasomotor symptoms during the past 1-2 years. She denies any vaginal bleeding. She has been experiencing urinary symptoms for about 4 days and they have gotten worse during the past 2 days. She has been experiencing dysuria, urinary urgency and frequency. She denies fever. She had similar symptoms about a year ago when she was treated for a UTI. That was her first UTI. She believes she has a UTI again. Review of Systems The patient's weight has been stable over the last year. She denies respiratory, cardiac, or G.I. problems. : Dysuria with urinary urgency. See the HPI. Past Medical History Past Medical History: GERD/Reflux, Hyperlipidemia Additional Past Medical History / Comment(s): Seasonal ALLERGIES. 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 History of Any Multi-Drug Resistant Organisms: None Reported Past Surgical History: Section, Hernia Repair, Tonsillectomy, Uterine Ablation Additional Past Surgical History / Comment(s): Endometrial ablation in 2016. One previous section. Right flank hernia repair 1998. COLONOSCOPY 2019(next after 10yr). Upper endoscopy 2020. 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 - Past Family History Mother Family Medical History: Cancer, CVA/TIA, Myocardial Infarction ([place]), Pulmonary Embolus Additional Family Medical History / Comment(s): Leukemia, blood clot to lung. Maternal grandmother had breast cancer. Father Family Medical History: Cancer, Congestive Heart Failure (CHF), Diabetes Mellitu s, Renal Disease Additional Family Medical History / Comment(s): Prostate cancer, bladder cancer, and lung cancer. . Brother(s) Family Medical History: Myocardial Infarction ([place]) Aunts Family Medical History: Cancer Additional Family Medical History / Comment(s): 3 maternal aunts had breast cancer as well as one paternal aunt and paternal cousin. Medications and Allergies Home Medications Medication Instructions Recorded Confirmed Type Atorvastatin Calcium [Lipitor] 40 mg PO DAILY 04/23/20 11/17/22 History Omeprazole [PriLOSEC] 20 mg PO AC-BRKFST 04/23/20 11/17/22 History dilTIAZem HCL [Cartia Xt] 240 mg PO DAILY 04/23/20 11/17/22 History Biotin 10,000 mcg PO DAILY 05/20/20 11/17/22 History Cholecalciferol [Vitamin D3 (25 2,000 unit PO DAILY 05/20/20 11/17/22 History Mcg = 1000 Iu)] Aspirin 81 mg PO DAILY tab 10/24/21 11/17/22 Rx Fexofenadine/Pseudoephedrine 1 tab PO DAILY PRN 11/17/22 11/17/22 History [Sharmin-D 24 Hour Tablet] Ubidecarenone [Co Q-10] 400 mg PO DAILY 11/17/22 11/17/22 History Allergies Allergy/AdvReac Type Severity Reaction Status Date / Time ciprofloxacin [From Cipro] Allergy Unknown Unverified 11/17/22 16:00 Sulfa (Sulfonamide Allergy Unknown Verified 11/17/22 16:00 Antibiotics) Exam Vital Signs Temp Pulse Resp BP Pulse Ox 11/17/22 16:02 99.0 F 98 17 143/88 98 Intake and Output 11/17/22 11/17/22 11/17/22 06:59 14:59 22:59 Other: Weight 55.338 kg Height 5 feet 5 inches, weight 122 pounds, BMI 20.3. This is a well-developed well-nourished white female who is alert and oriented times 3 in no acute distress. HEENT: Within normal limits. NECK: Supple without mass or thyromegaly. CHEST AND LUNGS: Clear to auscultation. HEART: Regular rate and rhythm. BREASTS: Are without mass or discharge. AXILLARY EXAM: Negative for adenopathy. BACK: Negative for CVA tenderness. ABDOMEN: Soft, nontender, without palpable masses. PELVIC EXAM: Normal external genitalia with minimal atrophy. Cervix and vagina appear normal minimal atrophy. There is no unusual discharge. There is no evidence of prolapse. There is mild tenderness in the area of the bladder. There is no cervical motion tenderness. The uterus is midposition, nongravid size and nontender. There are no palpable adnexal masses or tenderness. RECTAL EXAM: Rectovaginal exam is negative for mass or tenderness and is negative for occult blood. EXTREMITIES: Nontender. IMPRESSION: 1. 52-year-old menopausal female with urinary symptoms consistent with cystitis UTI. 2. Mild bladder tenderness consistent with UTI and otherwise unremarkable gynecologic exam. 3. Strong family history of breast cancer in several second-degree relatives including her maternal grandmother, maternal aunts and paternal aunt. Also one paternal cousin. PLAN: 1. Pap smear cotest was performed. 2. Self breast awareness was discussed with the patient. We have also discu ssed symptoms associated with inflammatory breast cancer. 3. Screening mammogram will be done today. 4. Urine will be sent for urinalysis and culture with sensitivity. Because her symptoms are consistent with cystitis, she will be treated with Macrobid twice a day 7 days. The electronic prescription will be sent to [facility] pharmacy in [place]. She was encouraged to drink lots of fluids. 5. We have discussed her family history of breast cancer in several second- degree relatives. We did discuss cancer genetic counseling and testing. At this time she is declining this. She will call if she changes her mind. 6. She has completed her Covid vaccination series and has received 1 booster. 7. She was advised to return in one year for her annual well woman exam and as needed.
--- NOTE | 2022-11-18 10:21 | MM ---
Reason for Exam: Screening (asymptomatic). Last mammogram was performed 1 year(s) and 4 month(s) ago. Patient History: Menarche at age 11. First Full-Term at age 24. Postmenopausal. Patient has history of breast feeding. Maternal grandmother had breast cancer, age 50. Paternal cousin had breast cancer, age 38. Maternal aunt had breast cancer, age 40. Maternal aunt had breast cancer. Maternal aunt had breast cancer. Paternal aunt had breast cancer. Risk Values: Kristal 5 year model risk: 1.3%. NCI Lifetime model risk: 9.3%. Prior Study Comparison: 04/21/2016 Bilateral Screening Mammogram, [facility]. 04/23/2020 Bilateral Screening Mammogram, [facility]. 08/05/2021 Bilateral Screening Mammogram, [facility]. Tissue Density: The breast tissue is heterogeneously dense. This may lower the sensitivity of mammography. Findings: Analyzed By CAD. No significant interval change is evident. No suspicious groups of microcalcifications, spiculated or lobular masses, architectural distortion or other secondary signs of malignancy are mammographically apparent. Overall Assessment: Benign, BI-RAD 2 Management: Screening Mammogram of both breasts in 1 year. A negative mammogram report should not preclude additional follow up of suspicious palpable abnormalities. Patient should continue monthly self breast exam. A clinical breast exam by your physician is recommended on an annual basis and results should be correlated with mammographic findings. Electronically signed and approved by: Nick Adams D.O. Radiologis
--- NOTE | 2022-11-18 12:16 | P.PN ---
Progress Note - Text Progress Note Date: 11/18/22 OUTPATIENT FOLLOW-UP NOTE TEST(S)/RESULTS: Urinalysis from 11/17/2022 shows moderate leukocyte Estrace, 11-20 white blood cells per high-power field, and 2+ bacteria. Also trace blood. METHOD OF NOTIFICATION: The patient was notified by phone. PATIENT COMMENTS: She was not able to pick up man the prescription yesterday because the pharmacy was closed when she arrived. DIAGNOSIS: Cystitis UTI DISCUSSION: She will pick up man the prescription as soon as possible. The prescription for Macrobid twice a day 7 days. PLAN: We will also await the urine culture.
== END ==
LOC: WWCWWP 15:53
PROVIDERS: ATTEND Obstetrics & Gynecology
DX: Z12.31 Encounter for screening mammogram for malignant neoplasm of breast (principal); Z01.411 Encounter for gynecological examination (general) (routine) with abnormal findings; K21.9 Gastro-esophageal reflux disease without esophagitis; E78.5 Hyperlipidemia, unspecified; Z88.2 Allergy status to sulfonamides; Z88.1 Allergy status to other antibiotic agents
CPT/HCPCS: 77063; 77067

== ENCOUNTER → 2023-01-26 | Outpatient (CLI) | payer BC ==
--- NOTE | 2023-01-26 14:31 | US ---
EXAMINATION TYPE: US kidneys/renal and bladder DATE OF EXAM: 01/26/2023 COMPARISON: US 2019 CLINICAL HISTORY: R30.0, M54.9, N20.0. Stone per order. Back pain x 1 month. Dysuria. EXAM MEASUREMENTS: Right Kidney: 10.1 x 4.2 x 3.9 cm Left Kidney: 10.1 x 3.9 x 4.4 cm Right Kidney: No hydronephrosis or masses seen Left Kidney: Anechoic area seen lower pole: 1.6 x 1.5 x 1.7 cm. Bladder: Appears wnl Bilateral Jets seen: Yes Urinary bladder is sonolucent. The posterior wall is unremarkable. IMPRESSION: Left renal simple cyst
== END | disposition home or self-care (01) ==
LOC: RADUSWWP 12:51
PROVIDERS: ATTEND Family Medicine
DX: N28.1 Cyst of kidney, acquired (principal); N20.0 Calculus of kidney
CPT/HCPCS: 76770

== ENCOUNTER 2023-02-05 10:16 | Emergency (ER) | payer BC ==
[2023-02-05 10:21] VITALS: TEMP 98.1
[2023-02-05] MEDS ORDERED: SODIUM CHLORIDE 0.9% 500 ML 500 ML IV STA (11:27)
[2023-02-05] MEDS ORDERED: KETOROLAC 15 MG/ML 1 ML VIAL IVP STA (11:27)
--- NOTE | 2023-02-05 11:36 | ED ---
Abdominal Pain HPI - General Chief Complaint: Urogenital Stated Complaint: lt sided abd pain Time Seen by Provider: 02/05/23 10:33 Source: patient, RN notes reviewed Mode of arrival: ambulatory Limitations: no limitations - History of Present Illness Initial Comments: This is a 52-year-old female who presents to the emergency department for left lower back and left lower quadrant abdominal pain. States that this has been present for the last 5-6 weeks. She has been treated for a UTI several times due to dysuria and back pain. She has had no relief in symptoms with antibiotic use. States that the pain is constant, however she does have periods that are worse than others. Pain is worse when trying to move. She has had mild episodes of nausea, however she denies any vomiting. Also reports diarrhea, which is not common for her. She has no history of kidney stones, but states that she had an ultrasound here on 01/26. She was told that she had a renal cyst, however no kidney stones were identified. She has injured her back at work before, and went to her chiropractor with no relief in symptoms. States that whenever she injures her back at work, a chiropractor always relieves the pain. Denies any fevers, chills, sore throat, cough, dyspnea, chest pain, palpitations, vomiting, or headaches. MD Complaint: abdominal pain Onset/Timin -: week(s) - Related Data Home Medications Medication Instructions Recorded Confirmed Atorvastatin Calcium [Lipitor] 40 mg PO DAILY 04/23/20 11/17/22 Omeprazole [PriLOSEC] 20 mg PO AC-BRKFST 04/23/20 11/17/22 dilTIAZem HCL [Cartia Xt] 240 mg PO DAILY 04/23/20 11/17/22 Biotin 10,000 mcg PO DAILY 05/20/20 11/17/22 Cholecalciferol [Vitamin D3 (25 2,000 unit PO DAILY 05/20/20 11/17/22 Mcg = 1000 Iu)] Fexofenadine/Pseudoephedrine 1 tab PO DAILY PRN 11/17/22 11/17/22 [Sharmin-D 24 Hour Tablet] Ubidecarenone [Co Q-10] 400 mg PO DAILY 11/17/22 11/17/22 Previous Rx's Medication Instructions Recorded Aspirin 81 mg PO DAILY tab 10/24/21 Nitrofurantoin Monohyd/M-Cryst 100 mg PO Q12HR 7 Days #14 cap 11/17/22 [Macrobid] Cephalexin [Keflex] 500 mg PO Q8HR 5 Days #15 cap 12/01/22 Dicyclomine [Bentyl] 10 mg PO QID PRN #15 capsule 02/05/23 Ondansetron Odt [Zofran Odt] 4 mg PO Q8HR PRN #10 tab 02/05/23 Allergies Allergy/AdvReac Type Severity Reaction Status Date / Time ciprofloxacin [From Cipro] Allergy Unknown Verified 02/05/23 10:21 Sulfa (Sulfonamide Allergy Unknown Verified 02/05/23 10:21 Antibiotics) Review of Systems ROS Statement: Those systems with pertinent positive or pertinent negative responses have been documented in the HPI. ROS Other: All systems not noted in ROS Statement are negative. Past Medical History Past Medical History: GERD/Reflux, Hyperlipidemia Additional Past Medical History / Comment(s): Seasonal ALLERGIES. 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 History of Any Multi-Drug Resistant Organisms: None Reported Past Surgical History: Section, Hernia Repair, Tonsillectomy, Uterine Ablation Additional Past Surgical History / Comment(s): Endometrial ablation in 2017. One previous section. Right flank hernia repair 1998. COLONOSCOPY 2019(next after 10yr). Upper endoscopy 2020. Past Anesthesia/Blood Transfusion Reactions: No Reported Reaction, Motion Sickn ess Past Psychological History: Anxiety Smoking Status: Never smoker Past Alcohol Use History: Occasional Past Drug Use History: None Reported - Past Family History Mother Family Medical History: Cancer, CVA/TIA, Myocardial Infarction ([place]), Pulmonary Embolus Additional Family Medical History / Comment(s): Leukemia, blood clot to lung. Maternal grandmother had breast cancer. Father Family Medical History: Cancer, Congestive Heart Failure (CHF), Diabetes Mellitus, Renal Disease Additional Family Medical History / Comment(s): Prostate cancer, bladder cancer, and lung cancer. . Brother(s) Family Medical History: Myocardial Infarction ([place]) Aunts Family Medical History: Cancer Additional Family Medical History / Comment(s): 3 maternal aunts had breast cancer as well as one paternal aunt and paternal cousin. General Exam Limitations: no limitations General appearance: alert, in no apparent distress Head exam: Present: atraumatic, normocephalic, normal inspection Respiratory exam: Present: normal lung sounds bilaterally. Absent: respiratory distress, wheezes, rales, rhonchi, stridor Cardiovascular Exam: Present: regular rate, normal rhythm, normal heart sounds. Absent: systolic murmur, diastolic murmur, rubs, gallop, clicks GI/Abdominal exam: Present: soft, tenderness (LLQ), normal bowel sounds. Absent: distended Back exam: Present: other (left lower back) Neurological exam: Present: alert, oriented X3, CN II-XII intact Psychiatric exam: Present: normal affect, normal mood Skin exam: Present: warm, dry, intact, normal color. Absent: rash Course Vital Signs 02/05/23 02/05/23 10:18 13:11 Temperature 98.1 F Pulse Rate 92 78 Respiratory 16 18 Rate Blood Pressure 142/86 120/66 O2 Sat by Pulse 98 98 Oximetry Medical Decision Making - Medical Decision Making This is a 52-year-old female who presents to the emergency department for abdominal pain and back pain. Was pt. sent in by a medical professional or institution? @ -No Did you speak to anyone other than the patient for history? @ -No Did you review nursing and triage notes? @ -Yes, and I agree, it is accurate with regards to the patient's symptoms. Were old charts reviewed? @ -Abdominal US from 01/26/23. Differential Diagnosis? @ -Differential Abdominal Pain Women: Appendicitis, Cholecystitis, diverticulosis, ischemic bowel, pancreatitis, hepatitis, UTI, gastroenteritis, AAA, incarcerated hernia, bowel obstruction, constipation, inflammatory bowel, hepatitis, peptic ulcer disease, splenic infarction, perforated viscus, vulvitis, ovarian torsion, PID, kidney stone, placenta abruption, this is not meant to be an all-inclusive list -Differential Back Pain: Strain, zoster, cauda equina syndrome, epidural abscess, vertebral osteomyelitis, discitis, fracture, subluxation, disc herniation, DJD, spinal stenosis, dissection, AAA, pancreatitis, peptic ulcer disease, pyelonephritis, kidney stone, this is not meant to be an all-inclusive list. CT interpreted by me (1pt min.)? @ -Computed tomography scan of the abdomen and pelvis obtained. My interpretat ion identifies bowel wall thickening to the left colon. There is no evidence of free air, ureteral calculus, or hydronephrosis. What testing was considered but not performed? (CT, X-rays, U/S, labs)? Why? @ -None What meds were considered but not given? Why? @ -None Did you discuss the management of the patient with other professionals? @ -No Did you reconcile home meds? @ -No Was smoking cessation discussed for >3mins.? @ -No Was critical care preformed (if so, how long)? @ -No Were there social determinants of health that impacted care today? How? (Homelessness, low income, unemployed, alcoholism, drug addiction, transportation, low edu. Level, literacy, decrease access to med. care, [place] [facility], rehab)? @ -No Was there de-escalation of care discussed even if they declined? (Discuss DNR or withdrawal of care, Hospice)? @ -No What co-morbidities impacted this encounter? (DM, HTN, Smoking, COPD, CAD, Cancer, CVA, Hep., AIDS, mental health diagnosis, sleep apnea, morbid obesity)? @ -GERD Was patient admitted / discharged? @ -Discharged. Lab work obtained and found to be nonactionable. Urinalysis consistent with contamination. She does have trace blood in her urine. Given the location of her symptoms and blood in the urine, computed tomography scan of the abdomen and pelvis was obtained to evaluate for any signs of a renal calculus or other pathology. Computed tomography scan of the abdomen and pelvis is consistent with a colitis. There is no evidence of a ureteral calculus or hydronephrosis. Findings reviewed with the patient. Advised that colitis often resolves on its own. Given her symptoms associated diarrhea, prescription for Bentyl provided with dosing instructions reviewed. She was given the first dose in the emergency department and tolerated this well. Zofran prescribed as well. Information for follow-up with gastroenterology provided. She is instructed to contact them for a follow-up appointment and reevaluation of symptoms. Undiagnosed new problem with uncertain prognosis? @ -None Drug Therapy requiring intensive monitoring for toxicity (Heparin, Nitro, Insulin, Cardizem)? @ -None Were any procedures done? @ -None Diagnosis/symptom? @ -Colitis, LLQ abdominal pain Acute, or Chronic, or Acute on Chronic? @ -Acute Uncomplicated (without systemic symptoms) or Complicated (systemic symptoms)? @ -Uncomplicated Side effects of treatment? @ -None Exacerbation, Progression, or Severe Exacerbation] @ -Not applicable Poses a threat to life or bodily function? @ -No Return precautions reviewed in depth, the patient is instructed to return to the emergency department with any new, worsening, or concerning symptoms. Patient verbalized understanding. This case was discussed in detail with the attending ED physician, Dr. Henry. Presentation, findings, and treatment plan discussed in detail as well. - Lab Data Result diagrams: 02/05/23 11:20 02/05/23 11:20 Lab Results 02/05/23 02/05/23 02/05/23 Range/Units 11:20 11:20 11:20 WBC 6.0 (3.8-10.6) k/uL RBC 4.71 (3.80-5.40) m/uL Hgb 14.8 (11.4-16.0) gm/dL Hct 45.0 (34.0-46.0) % MCV 95.5 (80.0-100.0) fL MCH 31.4 (25.0-35.0) pg MCHC 32.9 (31.0-37.0) g/dL RDW 13.6 (11.5-15.5) % Plt Count 289 (150-450) k/uL MPV 7.2 Neutrophils % 70 % Lymphocytes % 22 % Monocytes % 5 % Eosinophils % 1 % Basophils % 1 % Neutrophils # 4.2 (1.3-7.7) k/uL Lymphocytes # 1.3 (1.0-4.8) k/uL Monocytes # 0.3 (0-1.0) k/uL Eosinophils # 0.0 (0-0.7) k/uL Basophils # 0.0 (0-0.2) k/uL Sodium 141 (137-145) mmol/L Potassium 4.4 (3.5-5.1) mmol/L Chloride 102 (98-107) mmol/L Carbon Dioxide 30 (22-30) mmol/L Anion Gap 9 mmol/L BUN 14 (7-17) mg/dL Creatinine 0.64 (0.52-1.04) mg/dL Est GFR (CKD-EPI)AfAm >90 (>60 ml/min/1.73 sqM) Est GFR (CKD-EPI)NonAf >90 (>60 ml/min/1.73 sqM) Glucose 95 (74-99) mg/dL Plasma Lactic Acid Amandeep (0.7-2.0) mmol/L Calcium 10.0 (8.4-10.2) mg/dL Total Bilirubin 0.7 (0.2-1.3) mg/dL AST 31 (14-36) U/L ALT 34 (4-34) U/L Alkaline Phosphatase 144 H (38-126) U/L Total Protein 8.2 (6.3-8.2) g/dL Albumin 4.9 (3.5-5.0) g/dL Amylase 75 (30-110) U/L Lipase 83 (23-300) U/L Urine Color Yellow Urine Appearance Cloudy H (Clear) Urine pH 5.5 (5.0-8.0) Ur Specific [place] 1.020 (1.001-1.035) Urine Protein Trace H (Negative) Urine Glucose (UA) Negative (Negative) Urine Ketones Negative (Negative) Urine Blood Trace H (Negative) Urine Nitrite Negative (Negative) Urine Bilirubin Negative (Negative) Urine Urobilinogen <2.0 (<2.0) mg/dL Ur Leukocyte Esterase Large H (Negative) Urine RBC 6 H (0-5) /hpf Urine WBC 3 (0-5) /hpf Ur Squamous Epith Cells 11 H (0-4) /hpf Urine Bacteria Rare H (None) /hpf Urine Mucus Many H (None) /hpf 02/05/23 Range/Units 11:20 WBC (3.8-10.6) k/uL RBC (3.80-5.40) m/uL Hgb (11.4-16.0) gm/dL Hct (34.0-46.0) % MCV (80.0-100.0) fL MCH (25.0-35.0) pg MCHC (31.0-37.0) g/dL RDW (11.5-15.5) % Plt Count (150-450) k/uL MPV Neutrophils % % Lymphocytes % % Monocytes % % Eosinophils % % Basophils % % Neutrophils # (1.3-7.7) k/uL Lymphocytes # (1.0-4.8) k/uL Monocytes # (0-1.0) k/uL Eosinophils # (0-0.7) k/uL Basophils # (0-0.2) k/uL Sodium (137-145) mmol/L Potassium (3.5-5.1) mmol/L Chloride (98-107) mmol/L Carbon Dioxide (22-30) mmol/L Anion Gap mmol/L BUN (7-17) mg/dL Creatinine (0.52-1.04) mg/dL Est GFR (CKD-EPI)AfAm (>60 ml/min/1.73 sqM) Est GFR (CKD-EPI)NonAf (>60 ml/min/1.73 sqM) Glucose (74-99) mg/dL Plasma Lactic Acid Amandeep 0.7 (0.7-2.0) mmol/L Calcium (8.4-10.2) mg/dL Total Bilirubin (0.2-1.3) mg/dL AST (14-36) U/L ALT (4-34) U/L Alkaline Phosphatase (38-126) U/L Total Protein (6.3-8.2) g/dL Albumin (3.5-5.0) g/dL Amylase (30-110) U/L Lipase (23-300) U/L Urine Color Urine Appearance (Clear) Urine pH (5.0-8.0) Ur Specific [place] (1.001-1.035) Urine Protein (Negative) Urine Glucose (UA) (Negative) Urine Ketones (Negative) Urine Blood (Negative) Urine Nitrite (Negative) Urine Bilirubin (Negative) Urine Urobilinogen (<2.0) mg/dL Ur Leukocyte Esterase (Negative) Urine RBC (0-5) /hpf Urine WBC (0-5) /hpf Ur Squamous Epith Cells (0-4) /hpf Urine Bacteria (None) /hpf Urine Mucus (None) /hpf - Radiology Data Radiology results: report reviewed, image reviewed Disposition Clinical Impression: Colitis, LLQ abdominal pain Disposition: HOME SELF-CARE Instructions (If sedation given, give patient instructions): Abdominal Pain (ED), Colitis (ED) Additional Instructions: Return to the emergency department with any new, worsening, or concerning symptoms. Take the Bentyl up to 4 times as needed for abdominal pain. The Zofran can be used up to every 8 hours as needed for nausea and vomiting. You can also alternate with ibuprofen and Tylenol as needed for pain relief. Contact GI as listed below for a follow up appt and reevaluation of symptoms. Follow up with your primary care provider in 1-2 days. Prescriptions: Dicyclomine [Bentyl] 10 mg PO QID PRN #15 capsule PRN Reason: Pain Ondansetron Odt [Zofran Odt] 4 mg PO Q8HR PRN #10 tab PRN Reason: Nausea And Vomiting Is patient prescribed a controlled substance at d/c from ED?: No Referrals: Randa Diggs MD [Primary Care Provider] - 1-2 days Arabella Lynch MD [STAFF PHYSICIAN] - 1-2 days
[2023-02-05 11:46] LABS: Basophils % (A) 1 %; Eosinophils % (A) 1 %; HGB 14.8 gm/dL (11.4-16.0); Lymphocytes # (A) 1.3 k/uL (1.0-4.8); Lymphocytes % (A) 22 %; MCH 31.4 pg (25.0-35.0); MCHC 32.9 g/dL (31.0-37.0); MCV 95.5 fL (80.0-100.0); Mean Platelet Volume 7.2; Monocytes # (A) 0.3 k/uL (0-1.0); Monocytes % (A) 5 %; Neutrophils # (A) 4.2 k/uL (1.3-7.7); Neutrophils % (A) 70 %; Platelet Count 289 k/uL (150-450); RBC 4.71 m/uL (3.80-5.40); RDW 13.6 % (11.5-15.5)
[2023-02-05 11:54] LABS: ALT 34 U/L (4-34); AST 31 U/L (14-36); African American GFR (CKD) >90 (>60 ml/min/1.73 sqM); Albumin 4.9 g/dL (3.5-5.0); Alkaline Phosphatase 144 U/L (38-126); Amylase 75 U/L (30-110); Anion Gap 9 mmol/L; Blood Urea Nitrogen 14 mg/dL (7-17); Carbon Dioxide 30 mmol/L (22-30); Chloride 102 mmol/L (98-107); Glucose 95 mg/dL (74-99); Lipase 83 U/L (23-300); Non-African American GFR(CKD) >90 (>60 ml/min/1.73 sqM); Potassium 4.4 mmol/L (3.5-5.1); Sodium 141 mmol/L (137-145); Total Bilirubin 0.7 mg/dL (0.2-1.3); Total Protein 8.2 g/dL (6.3-8.2)
[2023-02-05 11:56] LABS: Appearance,Urine Cloudy (Clear); Bacteria,Urine Rare /hpf; Bilirubin,Urine Negative (Negative); Blood,Urine Trace (Negative); Color,Urine Yellow; Glucose,Urine (UA) Negative (Negative); Ketones,Urine Negative (Negative); Leukocyte Esterase,Urine Large (Negative); Mucus,Urine Many /hpf; Nitrite,Urine Negative (Negative); PH, Urine 5.5 (5.0-8.0); Protein,Urine Trace (Negative); RBC,Urine 6 /hpf (0-5); Squamous Epithelial Cell,Urine 11 /hpf (0-4); Urobilinogen,Urine <2.0 mg/dL (<2.0); WBC,Urine 3 /hpf (0-5)
--- NOTE | 2023-02-05 12:43 | CT ---
EXAMINATION TYPE: CT abdomen pelvis w con DATE OF EXAM: 02/05/2023 HISTORY: abd pain. Left lower quadrant pain. CT DLP: 577.8mGycm Automated Exposure Control for Dose Reduction was Utilized. CONTRAST: CT scan of the abdomen and pelvis is performed without oral and with IV Contrast, patient injected wi th 100 mL of Isovue 370. COMPARISON: None. FINDINGS: LUNG BASES: No significant abnormality is appreciated. LIVER/GB: No significant abnormality is appreciated. PANCREAS: No significant abnormality is seen. SPLEEN: No significant abnormality is seen. ADRENALS: No significant abnormality is seen. KIDNEYS: There is 1.3 cm simple appearing thin-walled cyst in the left kidney anteriorly mid to lower pole level coronal image 45. BOWEL: No suspicious small or large bowel dilatation. Suboptimal evaluation without enteric contrast. There is mild wall thickening in the transverse colon. There is moderate wall thickening in the left colon extending through the sigmoid colon in the pelvis. No significant surrounding fluid or fat str anding is seen. UTERUS/ADNEXA: No gross abnormality seen. LYMPH NODES: No greater than 1cm abdominal or pelvic lymph nodes are appreciated. OSSEOUS STRUCTURES: No significant abnormality is seen. OTHER: No significant additional abnormality is seen. IMPRESSION: Possible uncomplicated colitis versus product of poor distention. Correlate clinically. N o bowel obstruction. No acute findings otherwise seen.
[2023-02-05] MEDS ORDERED: DICYCLOMINE 10 MG CAP PO STA (12:54)
[2023-02-05 13:11] VITALS: BP 120/66; PULSE 78; RESP 18
== END 2023-02-05 13:26 | disposition home or self-care (01) ==
LOC: EC 10:16
DX: K52.9 Noninfective gastroenteritis and colitis, unspecified (principal); R10.32 Left lower quadrant pain; E78.5 Hyperlipidemia, unspecified; K21.9 Gastro-esophageal reflux disease without esophagitis; F41.9 Anxiety disorder, unspecified; Z88.6 Allergy status to analgesic agent; Z88.2 Allergy status to sulfonamides; Z79.899 Other long term (current) drug therapy
CPT/HCPCS: 36415; 80053; 82150; 83605; 83690; 85025; 81001; 74177; 99284; 96374; 96361; J1885; Q9967

== ENCOUNTER → 2025-02-13 | Outpatient (CLI) | payer BC ==
--- NOTE | 2025-02-14 18:13 | CT ---
EXAMINATION TYPE: CT abdomen pelvis w con DATE OF EXAM: 02/13/2025 8:51 AM COMPARISON: None. CLINICAL INDICATION: Female, 54 years old with history of K85.10 PANCREATITIS, ABD PAIN TECHNIQUE: Axial images were obtained from above the diaphragm to the pubic rami in the axial plane a t 5 mm thick sections. Reconstructed images are reviewed on the computer in the coronal plane. CONTRAST: 100 ml mL of Isovue 300. Study performed with Oral Contrast DLP: 423.1 mGycm, Automated exposure control for dose reduction was used. FINDINGS: Limited CT sections are obtained the lung bases. The lung bases are clear. CT ABDOMEN: Liver: Normal Spleen: Normal Pancreas: Normal. No inflammatory changes are evident. No pseudocyst formation or abscess formation i dentified. Adrenal glands: The adrenal glands are normal. Gallbladder: Normal Kidneys: No masses are evident. No hydronephrosis is present. There is a 1.8 cm cyst along the ante rior mid right kidney. Delayed images were obtained through the kidneys, which remain unremarkable. Aorta: Vascular calcification is within the aorta. Inferior vena cava: Normal. CT PELVIS: Loops of bowel within the abdomen and pelvis are normal. There are loops of bowel which are incom pletely distended or lack oral contrast limiting their evaluation. Appendix: Normal as visualized. Urinary bladder: Normal. Genitourinary structures: Uterus is normal. Adnexa are unremarkable. Osseous structures: No suspicious lytic or sclerotic lesions. IMPRESSION: 1. No radiographic changes to suggest pancreatitis. Correlate with the laboratory results and follow -up as clinically indicated. [facility], Workstation: [id number], 02/14/2025 6:11 PM
== END | disposition home or self-care (01) ==
LOC: RADCTMAIN 07:11
PROVIDERS: ATTEND Surgery
DX: K85.10 Biliary acute pancreatitis without necrosis or infection (principal)
CPT/HCPCS: 74177; Q9967

== ENCOUNTER → 2025-05-17 | Outpatient (CLI) | payer BC ==
--- NOTE | 2025-05-17 10:36 | MM ---
Reason for Exam: Screening (asymptomatic). Last mammogram was performed 2 year(s) and 6 month(s) ago. Patient History: Menarche at age 11. First Full-Term at age 24. Postmenopausal. Patient has history of breast feeding. Maternal grandmother had breast cancer, age 50. Paternal cousin had breast cancer, age 38. Maternal aunt had breast cancer, age 40. Maternal aunt had breast cancer. Maternal aunt had breast cancer. Paternal aunt had breast cancer. Risk Values: Kristal 5 year model risk: 1.4%. NCI Lifetime model risk: 8.7%. Prior Study Comparison: 04/23/2020 Bilateral Screening Mammogram, [facility]. 08/05/2021 Bilateral Screening Mammogram, [facility]. 11/17/2022 Bilateral MG 3D screening mammo w/cad, [facility]. Tissue Density: The breasts are heterogeneously dense, which may obscure small masses. Findings: Analyzed By CAD. There is no suspicious group of microcalcifications or new suspicious mass in either breast. Overall Assessment: Negative, BI-RAD 1 Management: Screening Mammogram of both breasts in 1 year. . Patient should continue monthly self-breast exams. A clinical breast exam by your physician is recommended on an annual basis. This exam should not preclude additional follow-up of suspicious palpable abnormalities. Note on Kristal scores and lifetime risk: 1. A Kristal score greater than 3% is considered moderate risk. If this is the case, consider specialist referral to assess eligibility for a risk reducing agent. 2. If overall lifetime risk for the development of breast cancer is 20% or higher, the patient may qualify for future screening with alternating mammogram and breast MRI. [facility], , 05/17/2025 9:54 AM. Electronically signed and approved by: Shashank Valentin M.D.
== END | disposition home or self-care (01) ==
LOC: RADMAMWWP 08:54
PROVIDERS: ATTEND Family Medicine
DX: Z12.31 Encounter for screening mammogram for malignant neoplasm of breast (principal); R92.333 Mammographic heterogeneous density, bilateral breasts; Z80.3 Family history of malignant neoplasm of breast; Z78.0 Asymptomatic menopausal state
CPT/HCPCS: 77063; 77067